=== PATIENT | male | born 1995 | race Caucasian/White ===

== ENCOUNTER 2016-11-14 14:04 | Emergency (ER) | payer OTHER ==
[2016-11-14 14:12] VITALS: BP 126/78; PULSE 66; RESP 16; TEMP 99.1; O2SAT 94
[2016-11-14] MEDS ORDERED: HYDROCODONE/APAP 5/325 TAB PO ONE (14:18)
[2016-11-14] MEDS ORDERED: HYDROCODONE/APAP 5/325 TAB ONE (14:18)
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
== END 2016-11-14 15:37 | disposition home or self-care (01) ==
DX: S63.502A Unspecified sprain of left wrist, initial encounter (principal); B20 Human immunodeficiency virus [HIV] disease; V18.0XXA Pedal cycle driver injured in noncollision transport accident in nontraffic accident, initial encounter; Y93.89 Activity, other specified
CPT/HCPCS: A4565

== ENCOUNTER 2017-07-06 12:35 | Emergency (ER) | payer OTHER ==
[2017-07-06 12:48] VITALS: RESP 16; TEMP 99.3
--- NOTE | 2017-07-06 13:20 | EDPHY ---
H & P Time Seen by Provider: 07/06/17 12:56 HPI/ROS: CHIEF COMPLAINT: Left lateral ankle pain HISTORY OF PRESENT ILLNESS: 21-year-old male arrives via private vehicle complaining of acute left lateral ankle pain after he rolled his foot last evening. Unable to bear weight. Soft tissue swelling to the lateral aspect. Reproducible pain with weight-bearing, palpation. No foot pain. No proximal tibia or fibula pain. No head injury. PHYSICAL EXAM (Prior to examination, patient consented to physical exam, hands were washed and my usual and customary physical exam procedures followed) 1) GENERAL: Well-developed, well-nourished, alert and oriented. Appears to be in no acute distress. 2) HEAD: Normocephalic 3) HEENT: Pupils equal, round, reactive to light bilaterally. 4) LUNGS: Breathing comfortably. 5) MUSCULOSKELETAL: Soft tissue swelling lateral malleolus with associated tenderness. proximal tibia and fibula nontender .5th [place] nontender negative Lucas test, compartments soft. Fibular head nontender. 6) SKIN: Intact no tenting no discoloration 7) VASCULAR: DP,PT pulses and cap refill present and brisk DIFFERENTIAL DIAGNOSIS: in no particular order including but not limited to fracture, sprain, compartment syndrome Procedure: Crutches indications for crutch use discussed with patient. Patient fitted for crutches by ER staff. Observed ambulating with crutches. I think the patient has the capacity to safely use crutches. Usual and customary crutch walking precautions provided Procedure: Splint A [place] boot splint was applied by ER ballistic technician. After application of the splint I returned and re-examined the patient. The splint was adequately immobilizing the joint and distal to the splint the patient's circulation and sensation were intact. Patient shows no signs of compartment syndrome. Was given orthopedic precautions. Smoking Status: Never smoked Constitutional: Initial Vital Signs Temperature (C) 37.4 C 07/06/17 12:46 Heart Rate 92 07/06/17 12:46 Respiratory Rate 16 07/06/17 12:46 Blood Pressure 134/82 H 07/06/17 12:46 O2 Sat (%) 95 07/06/17 12:46 O2 Delivery Mode Room Air Allergies/Adverse Reactions: No Known Allergies Allergy (Unverified 07/06/17 12:45) Home Medications: Medication Instructions Recorded Descovy 200-25 mg Tablet 11/14/16 Isoniazid 11/14/16 Tivicay 11/14/16 MDM/Departure - [facility] ED Course/Re-evaluation: Re-evaluation with serial exams. No evidence of fracture. No evidence of compartment syndrome. Soft compartments. Recommend follow up with Orthopedics. Given this referral information. Recommend Elevation. Usual and customary discharge precautions instructions for orthopedic injuries provided.Care of patient under supervision of secondary supervising physician Dr Bennett . - Depart Disposition: Home, Routine, Self-Care Clinical Impression: Left ankle sprain Qualifiers: Encounter type: initial encounter Involved ligament of ankle: unspecified ligament Qualified Code(s): S93.402A - Sprain of unspecified ligament of left ankle, initial encounter Condition: Good Instructions: Ankle Sprain (ED) Additional Instructions: Return to the ER immediately if you experience discoloration, have worsening pain, numbness, tingling, or any other symptoms that concern you. If you received x-rays in the emergency department today, be advised, that ligamentous , tendon, muscular, and other non-bony injury cannot be fully ruled out. Try to keep your affected extremity elevated above the level of your chest, and keep cold packs on the affected area, for the next 48 hours. Referrals: Olegario Briscoe MD [Medical Doctor] - As per Instructions
[2017-07-06 13:50] VITALS: BP 133/89; PULSE 80; O2SAT 96
== END 2017-07-06 13:48 | disposition home or self-care (01) ==
DX: S93.402A Sprain of unspecified ligament of left ankle, initial encounter (principal); X58.XXXA Exposure to other specified factors, initial encounter